=== PATIENT | female | born 1945 | race Two or more races ===

== ENCOUNTER 2024-09-24 05:32 | Day surgery (SDC) | payer OTHER ==
[2024-09-02 10:27] VITALS: BMI 27.2
[2024-09-24 10:11] VITALS: TEMP 98.2
[2024-09-24 10:38] VITALS: PULSE 66
[2024-09-24 11:04] VITALS: BP 120/68; RESP 18
== END 2024-09-24 11:04 | disposition home or self-care (01) ==
LOC: JASU-ENDO 05:32
PROVIDERS: ATTEND Student in an Organized Health Care Education/Training Program
PROC: 0DJD8ZZ Inspection of Lower Intestinal Tract, Via Natural or Artificial Opening Endoscopic (ICD-10-PCS; principal; 2024-09-24 09:00)
DX: K57.30 Diverticulosis of large intestine without perforation or abscess without bleeding (principal); K64.8 Other hemorrhoids; R19.5 Other fecal abnormalities; I10 Essential (primary) hypertension
CPT/HCPCS: 82962